=== PATIENT | female | born 1985 | race Caucasian/White ===

== ENCOUNTER 2018-09-22 12:36 | Emergency (ER) | payer MEDICAID ==
[~2018-09-22] VITALS: Ht 172.7 cm; Wt 64.9 kg
--- NOTE | 2018-09-22 12:43 | NUR ---
PT AMBULATES TO BED 7
[2018-09-22 12:50] VITALS: BP 120/70
--- NOTE | 2018-09-22 13:04 | NUR ---
DR. WOODALL AT BEDSIDE ASSESSING PATIENT
--- NOTE | 2018-09-22 13:06 | NUR ---
Stood in as female student career development specialist for Dr. Paul during patient exam
--- NOTE | 2018-09-22 13:09 | NUR ---
DENIES INJURY. BREAST FEEDING. LT. BREAST TENDER,WARM TO TOUCH. REDNESS. SIZE BIGGER THAN THE RT. BREAST. TOOK TYLENOL FOR FEVER AT 1000. HX: CSECTION. TAKES TYLENOL FOR PAIN AND FEVER.
[2018-09-22] MEDS ORDERED: cefTRIAXone 1,000 MG in LIDOCAINE 1% ***ER ONLY *** 2.1 ML IM ONE (13:10)
[2018-09-22] MEDS ORDERED: KETOROLAC 60 MG/2 ML VIAL IM ONE (13:10)
[2018-09-22] MEDS ORDERED: cefTRIAXone 1,000 MG VIAL ONE (13:22)
[2018-09-22] MEDS ORDERED: LIDOCAINE MPF 1% 5mL VIAL ONE (13:23)
[2018-09-22 13:49] VITALS: BP 120/70
--- NOTE | 2018-09-22 13:49 | NUR ---
Patient discharged with v/s stable. Written and verbal after care instructions given and explained. Patient alert, oriented and verbalized understanding of instructions. Ambulatory with steady gait. All questions addressed prior to discharge. ID band removed. Patient advised to follow up with PMD. Rx of augmentin and motrin given. Patient educated on indication of medication including possible reaction and side effects. Opportunity to ask questions provided and answered.
== END 2018-09-22 13:49 | disposition home or self-care (01) ==
LOC: MED 12:36
DX: N61.0 Mastitis without abscess (principal)
CPT/HCPCS: 96372; 99283; J0696; J1885; J2001

== ENCOUNTER 2018-10-07 14:23 | Emergency (ER) | payer MEDICAID ==
[~2018-10-07] VITALS: Ht 172.7 cm; Wt 63.0 kg
[2018-10-07 14:45] VITALS: BP 103/75
--- NOTE | 2018-10-07 19:10 | NUR ---
PT AMBULATED TO BED 12
--- NOTE | 2018-10-07 19:20 | NUR ---
PT PRESENTS TO ED WITH C/O LOW BACK PAIN AND DYSURIA X 3 DAYS. DENIES INJURY/TRAUMA. PT PLACED INTO BED, PENDING MD BONILLA. PMH--DENIES RX--DENIES
[2018-10-07] MEDS ORDERED: KETOROLAC 30 MG/ML VIAL IVP ONE (20:05)
[2018-10-07] MEDS ORDERED: SULFAMETH/TRIMETH DS 800/160MG 1 TAB PO ONE (20:05)
[2018-10-07] MEDS ORDERED: NACL 0.9% 1,000 ML IV ONE (20:05)
[2018-10-07 20:49] LABS: APPEARANCE,URINE CLEAR (CLEAR); BILIRUBIN,URINE NEGATIVE (NEGATIVE); BLOOD, URINE TRACE-I (NEGATIVE); COLOR,URINE YELLOW (YELLOW); LEUKOCYTE ESTERASE ,URINE 1+ (NEGATIVE); NITRITE, URINE POSITIVE (NEGATIVE); UGLUCOSE NEGATIVE (NEGATIVE)
[2018-10-07 20:53] LABS: RBC,URINE 0-5 (RARE) /HPF (0-5)
[2018-10-07 20:54] LABS: WBC,URINE 20-60 /HPF (0-5)
[2018-10-07] MEDS ORDERED: cefTRIAXone 1,000 MG VIAL ONE (21:22)
--- NOTE | 2018-10-07 21:52 | NUR ---
Patient discharged with v/s stable. Written and verbal after care instructions given and explained. Patient alert, oriented and verbalized understanding of instructions. Ambulatory with steady gait. All questions addressed prior to discharge. ID band removed. Patient advised to follow up with PMD. Rx of BACTRIM, MOTRIN given. Patient educated on indication of medication including possible reaction and side effects. Opportunity to ask questions provided and answered.
[2018-10-07 21:53] VITALS: BP 103/75
== END 2018-10-07 21:52 | disposition home or self-care (01) ==
LOC: MED 14:23
DX: N12 Tubulo-interstitial nephritis, not specified as acute or chronic (principal)
CPT/HCPCS: 81001; 87086; 96365; 96375; 99283; J0696; J1885; J7030; 87186

== ENCOUNTER 2019-09-05 14:13 | Emergency (ER) | payer MEDICAID ==
[~2019-09-05] VITALS: Ht 172.7 cm; Wt 66.2 kg
[2019-09-05 14:26] VITALS: BP 107/44
--- NOTE | 2019-09-05 14:37 | NUR ---
PT AMBULATED TO ED BED 08. AND FRANKO RN MADE AWARE OF PT STATUS
[2019-09-05] MEDS ORDERED: CEPHALEXIN 500 MG CAP PO ONE (14:50)
--- NOTE | 2019-09-05 15:03 | NUR ---
KEFLEX PO ADMINISTERED
[2019-09-05] MEDS ORDERED: IBUPROFEN 800 MG TAB PO ONE (15:20)
--- NOTE | 2019-09-05 15:21 | NUR ---
DR PICKETT INFORMED OF PTS TEMPM, STATES HE WILL ORDER PAIN AND FEVER MEDICATION
--- NOTE | 2019-09-05 15:23 | NUR ---
C/O LT BREAST PAIN 05/29 X 2 DAYS. TODAY WORSENING, WITH FEELING OF DIZZINESS, CHILLS, AND FEVER THIS AM. LT BREAST SWOLLEN AND RED AT SITE. DENIES DISCHARGE. PT STATED THIS IS THE THIRD TIME WITH THE SAME S/SX. PT FEVER UPON TRIAGE. TACHY HR 130. CURRENTLY . NEURO INTACT. PT ALERT AND AWAKE. DENIES PMH
[2019-09-05 15:29] VITALS: BP 110/47
--- NOTE | 2019-09-05 15:29 | NUR ---
Patient discharged with v/s stable. Written and verbal after care instructions given and explained. Patient alert, oriented and verbalized understanding of instructions. Ambulatory with steady gait. All questions addressed prior to discharge. ID band removed. Patient advised to follow up with PMD. Rx of MOTRIN KEFLEX given. Patient educated on indication of medication including possible reaction and side effects. Opportunity to ask questions provided and answered. PT INSTRUCTED THAT MOTRIN WILL HELP WITH PAIN/FEVER Addendum: 09/05/19 at 1531 by [email or web address] PT WISHES TO LEAVE WITHOUT VS STABLE. PT DISCHARGED WITH HR 129 AND FEVER
--- NOTE | 2019-09-05 15:29 | NUR ---
PT REFUSED MOTRIN, WISHES TO BE DISCHARGED AT THIS TIME
== END 2019-09-05 15:29 | disposition home or self-care (01) ==
LOC: MED 14:13
DX: N61.0 Mastitis without abscess (principal)
CPT/HCPCS: 99283